=== PATIENT | female | born 1970 | race Caucasian/White ===

== ENCOUNTER → 2017-01-06 | Outpatient (CLI) | payer OTHER ==
--- NOTE | 2017-01-06 16:54 | RAD ---
Lumbar spine, 5 views, 01/06/2017: History: Low back pain The lumbar vertebral heights are well-maintained. The intervertebral disc spaces are well preserved. There are mild scattered marginal spurs. There are mild degenerative changes involving the facet joints at L5-S1. There is no evidence of spondylolysis. The paraspinous soft tissues are unremarkable. IMPRESSION: 1. Mild scattered degenerative changes. 2. No acute abnormality is detected.
== END | disposition home or self-care (01) ==
LOC: RAD 14:45
PROVIDERS: ATTEND Family Medicine
DX: M47.897 Other spondylosis, lumbosacral region (principal)
CPT/HCPCS: 72110

== ENCOUNTER → 2019-08-04 | Outpatient (CLI) | payer OTHER ==
[2018-03-21 11:00] VITALS: BP 112/70
[~2019-08-04] MED LIST: AMOX1TAB61 PO; CRESTOR40 MG PO; INSU100C SQ; INSU100I13 SQ; INSU100V6 SQ; LISI10TA2 PO; SERT100T8 PO
--- NOTE | 2019-08-04 08:58 | RAD ---
EXAM: ABDOMINAL ULTRASOUND. HISTORY: Epigastric pain. COMPARISON: 03/10/2018. FINDINGS: Sonographic evaluation of the abdomen was performed. Increased hepatic parenchymal echogenicity is consistent with steatosis. There are no focal lesions. The liver is enlarged spanning 19.4 cm. The spleen measures 11.5 cm. The gallbladder is surgically absent. There is no sonographic Mcginnis sign. The common duct measures 6 mm. The visualized portions of the head of the pancreas reveal no abnormality. The right kidney measures 12.6 cm. Cortical thickness and echogenicity are preserved. There is no hydronephrosis. The left kidney measures 12.5 cm. Cortical thickness and echogenicity are preserved. There is no hydronephrosis. The visualized portions of the abdominal aorta and inferior vena cava are grossly patent and normal in caliber. IMPRESSION: 1. Relatively severe diffuse hepatic steatosis. At least mild hepatomegaly. 2. Status post cholecystectomy. No biliary dilatation. Electronically signed by: Maya Stout MD (08/04/2019 8:55 AM) [facility]
== END | disposition home or self-care (01) ==
LOC: US 06:38
PROVIDERS: ATTEND Family Medicine
DX: K76.0 Fatty (change of) liver, not elsewhere classified (principal); Z90.49 Acquired absence of other specified parts of digestive tract
CPT/HCPCS: 76700

== ENCOUNTER → 2020-11-01 | Outpatient (CLI) | payer OTHER ==
[2018-03-21 11:00] VITALS: BP 112/70
[~2020-11-01] MED LIST changes: +LISI10TA16 PO; -LISI10TA2 PO; +SERT-268 PO; -SERT100T8 PO
--- NOTE | 2020-11-01 10:01 | RAD ---
ANKLE BRACHIAL INDEX Indication: Reason: B/L LEG PAIN / Spl. Instructions: / History: Comparison: None. Procedure: Arterial pressures are measured in the arms and ankles. Findings: . Right ankle: 159 mm Hg. Right arm: 139 mm Hg. Left ankle: 155 mm Hg. Left arm: 141 mm Hg. Right leg ASHLEY: 1.18. Left leg ASHLEY: 1.19. ASHLEY interpretation: 0.90 and above Generally normal 0.7 - 0.89 Mild disease 0.51- 0.69 Moderate disease 0.5 or below Severe disease IMPRESSION: Normal ABIs. End of impression: Electronically signed by: Isra Clark MD (11/01/2020 9:59 AM) [id number]
== END ==
LOC: US 06:39
PROVIDERS: ATTEND Family Medicine
DX: M79.604 Pain in right leg (principal); M79.605 Pain in left leg
CPT/HCPCS: 93922